=== PATIENT | female | born 1970 | race Caucasian/White ===

== ENCOUNTER 2016-11-01 00:22 | Emergency (ER) | payer MEDICARE, OTHER ==
[~2016-11-01] VITALS: Ht 162.6 cm; Wt 104.3 kg
[2016-11-01 00:39] VITALS: BP 152/98
[2016-11-01] MEDS ORDERED: IBUPROFEN 600 MG TAB PO ONE (03:45)
[2016-11-01] MEDS ORDERED: CYCLOBENZAPRINE HCL 10 MG TAB PO ONE (03:45)
== END 2016-11-01 03:57 | disposition home or self-care (01) ==
LOC: EDBD 00:22 → ER 00:22
DX: S63.501A Unspecified sprain of right wrist, initial encounter (principal); S96.912A Strain of unspecified muscle and tendon at ankle and foot level, left foot, initial encounter; S80.02XA Contusion of left knee, initial encounter; S80.01XA Contusion of right knee, initial encounter; V43.52XA Car driver injured in collision with other type car in traffic accident, initial encounter; Y93.89 Activity, other specified; Y92.89 Other specified places as the place of occurrence of the external cause; Y99.8 Other external cause status; E11.9 Type 2 diabetes mellitus without complications; I10 Essential (primary) hypertension; F17.210 Nicotine dependence, cigarettes, uncomplicated
CPT/HCPCS: 73562; 73610; 73630